=== PATIENT | male | born 1980 | race Caucasian/White ===

== ENCOUNTER 2020-10-17 21:46 | Emergency (ER) | payer BC ==
[2020-10-17] MEDS ORDERED: LORazepam 2 MG/ML SDV IVPUSH ONE ×3 (22:12→23:50)
--- NOTE | 2020-10-17 22:19 | EDM.PDOC ---
ED HPI GENERAL MEDICAL PROBLEM - General Chief Complaint: Neurological Problem Stated Complaint: TREMORES Time Seen by Provider: 10/17/20 22:05 Source of Information: Reports: Patient History Limitations: Reports: No Limitations - History of Present Illness INITIAL COMMENTS - FREE TEXT/NARRATIVE: This 40 yo male patient reports to the ED with a friend due to right sided tremors. 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 The patient reports he did have some stress this morning due to not being able to get in touch with his uncle. The patient reports he did take Ativan (0.5 mg) twice today with some symptom improvement. The patient does not believe he fell or hit his head today. The patient does not believe he has had any seizures. The patient reports his muscles hurt at this time from the shaking. Onset: Today (This afternoon) Duration: Constant, Getting Worse Location: Reports: Upper Extremity, Right, Lower Extremity, Right Quality: Reports: Other Severity: Moderate Improves with: Reports: Medication Worsens with: Reports: None Context: Reports: Other - Related Data Allergies Allergy/AdvReac Type Severity Reaction Status Date / Time naproxen [From Aleve] Allergy Cannot Verified 10/17/20 22:19 Remember Social & Family History - Tobacco Use Tobacco Use Status *Q: Never Tobacco User Second Hand Smoke Exposure: No - Recreational Drug Use Recreational Drug Use: No ED ROS GENERAL - Review of Systems Review Of Systems: Comprehensive ROS is negative, except as noted in HPI. ED EXAM, NEURO - Physical Exam Exam: See Below Exam Limited By: No Limitations General Appearance: Alert, WD/WN, Moderate Distress, Thin Eye Exam: Bilateral Eye: EOMI, Normal Inspection, PERRL Ears: Normal External Exam, Normal Canal, Hearing Grossly Normal, Normal TMs Nose: Normal Inspection, Normal Mucosa, No Blood Throat/Mouth: Normal Inspection, Normal Lips, Normal Teeth, Normal Gums, Normal Oropharynx, Normal Voice, No Airway Compromise Head Exam: Atraumatic, Normocephalic Neck: Normal Inspection, Supple, Non-Tender, Full Range of Motion Respiratory/Chest: No Respiratory Distress, Lungs Clear, Normal Breath Sounds, No Accessory Muscle Use, Chest Non-Tender Cardiovascular: Normal Peripheral Pulses, Regular Rate, Rhythm, No Edema, No Gallop, No JVD, No Murmur, No Rub GI/Abdominal: Normal Bowel Sounds, Soft, Non-Tender, No Organomegaly, No Distention, No Abnormal Bruit, No Mass (Male) Exam: Deferred Rectal (Males) Exam: Deferred Neurological: Alert, Normal Mood/Affect, Oriented x 3, Abnormal Gait (due to right sided tremors) Extremities: Other (The patient has tremors to his right upper and lower extre mities) Psychiatric: Normal Affect, Normal Mood Skin Exam: Warm, Dry, Intact, Normal Color, No Rash Course - Vital Signs Last Recorded V/S: Last Vital Signs Temp 98.1 F 10/17/20 21:47 Pulse 66 10/17/20 21:47 Resp 18 10/17/20 21:47 BP 108/78 10/17/20 21:47 Pulse Ox 100 10/17/20 21:47 - Orders/Labs/Meds Labs: Laboratory Tests 10/17/20 10/17/20 10/18/20 Range/Units 21:55 21:55 00:28 WBC 6.5 (5.0-10.0) 10^3/uL RBC 4.42 L (4.6-6.2) 10^6/uL Hgb 13.9 L (14.0-18.0) g/dL Hct 40.0 (40.0-54.0) % MCV 90.5 (80-100) fL MCH 31.4 (27.0-34.0) pg MCHC 34.8 (33.0-35.0) g/dL Plt Count 207 (150-450) 10^3/uL Neut % (Auto) 49.0 (42.2-75.2) % Lymph % (Auto) 39.8 (20.5-50.1) % [place] % (Auto) 9.1 H (2-8) % Eos % (Auto) 1.8 (1.0-3.0) % Baso % (Auto) 0.3 (0.0-1.0) % Sodium 145 (136-145) mmol/L Potassium 4.1 (3.5-5.1) mmol/L Chloride 105 (98-107) mmol/L Carbon Dioxide 28 (21-32) mmol/L Anion Gap 16.1 H (7-13) mEq/L BUN 13 (7-18) mg/dL Creatinine 1.37 H (0.70-1.30) mg/dL Est Cr Clr Drug Dosing 70.28 mL/min Estimated GFR (MDRD) 57 BUN/Creatinine Ratio 9.5 (No establ ref range) Glucose 93 (70-99) mg/dL Calcium 8.5 (8.5-10.1) mg/dL Total Bilirubin 0.7 (0.2-1.0) mg/dL AST 18 (15-37) U/L ALT 43 (16-63) U/L Alkaline Phosphatase 61 (46-116) U/L Total Protein 6.5 (6.4-8.2) g/dL Albumin 3.6 (3.4-5.0) g/dL Globulin 2.9 Albumin/Globulin Ratio 1.2 Urine Color Yellow (YELLOW) Urine Appearance Clear (CLEAR) Urine pH 7.0 (5.0-9.0) Ur Specific [place] 1.025 (1.005-1.030) Urine Protein Negative (NEGATIVE) Urine Glucose (UA) Negative (NEGATIVE) Urine Ketones Negative (NEGATIVE) Urine Occult Blood Negative (NEGATIVE) Urine Nitrite Negative (NEGATIVE) Urine Bilirubin Negative (NEGATIVE) Urine Urobilinogen 1.0 (0.2-1.0) mg/dL Ur Leukocyte Esterase Negative (NEGATIVE) Meds: Medications Discontinued Medications Generic Name Dose Route Start Last Admin Trade Name Freq PRN Reason Stop Dose Admin Diphenhydramine HCl 50 mg 10/18/20 00:24 10/18/20 02:25 Diphenhydramine 50 Mg/Ml Sdv IVPUSH 10/18/20 00:25 50 mg ONETIME ONE Administration Sodium Chloride 1,000 mls @ 999 mls/hr 10/17/20 22:36 10/17/20 22:45 Normal Saline IV 10/17/20 23:36 999 mls/hr .BOLUS ONE Administration Ketorolac Tromethamine 30 mg 10/18/20 02:14 10/18/20 02:27 Ketorolac 30 Mg/Ml Sdv IVPUSH 10/18/20 02:15 30 mg ONETIME ONE Administration Lorazepam 0.5 mg 10/17/20 22:12 10/17/20 22:23 Lorazepam 2 Mg/Ml Sdv IVPUSH 10/17/20 22:13 0.5 mg ONETIME ONE Administration Lorazepam 0.5 mg 10/17/20 22:36 10/17/20 22:45 Lorazepam 2 Mg/Ml Sdv IVPUSH 10/17/20 22:37 0.5 mg ONETIME ONE Administration Lorazepam 1 mg 10/17/20 23:50 10/17/20 23:57 Lorazepam 2 Mg/Ml Sdv IVPUSH 10/17/20 23:51 1 mg ONETIME ONE Administration - Re-Assessments/Exams Free Text/Narrative Re-Assessment/Exam: 10/17/20 23:53 The patient's tremors did go away, but once the patient woke up again his tremors returned. An order was placed for a dose of Ativan and a CT. 10/18/20 02:16 The patient woke up and started to have the right hand tremor again. The patient reports a headache as well as needing to urinate. Orders were placed for Benadryl and Toradol. 10/18/20 05:50 The patient has been sleeping without tremors over the past 4 hours. The patient reports he feels a little better at this time. Departure - Departure Time of Disposition: 05:51 Disposition: Home, Self-Care 01 Condition: Fair Clinical Impression: Tremors of nervous system - Discharge Information *PRESCRIPTION DRUG MONITORING PROGRAM REVIEWED*: Not Applicable *COPY OF PRESCRIPTION DRUG MONITORING REPORT IN PATIENT [place]: Not Applicable Forms: ED Department Discharge Care Plan Goals: The patient was advised of the examination, lab and CT results during the visit. The patient was given IV fluids, IV Ativan, IV Benadryl and IV Toradol during the visit. The patient had increased tremors with increased stimulation (going to CT) and increased activity. The patient was encouraged to rest and relax throughout the next 24 hours. The patient may take his medications as prescribed. If the patient has any additional symptoms or concerns, the patient should either return to the emergency department or visit his primary care facility. Sepsis Event Note (ED) - Focused Exam Vital Signs: Vital Signs Temp Pulse Resp BP Pulse Ox 10/17/20 21:47 98.1 F 66 18 108/78 100
[2020-10-17 22:31] LABS: ANION GAP 16.1 mEq/L (7-13)
[2020-10-17] MEDS ORDERED: Sodium Chloride 0.9% 1,000 ML IV ONE (22:36)
--- NOTE | 2020-10-18 00:20 | CT ---
PROCEDURE INFORMATION: Exam: CT Head Without Contrast Exam date and time: 10/18/2020 12:04 AM Age: 40 years old Clinical indication: Other: Tremors; Patient HX: HX tbi TECHNIQUE: Imaging protocol: Computed tomography of the head without contrast. Radiation optimization: All CT scans at this facility use at least one of these dose optimization techniques: automated exposure control; mA and/or kV adjustment per patient size (includes targeted exams where dose is matched to clinical indication); or iterative reconstruction. COMPARISON: No relevant prior studies available. FINDINGS: Limitations: Study is grossly limited by motion. Brain: No gross intracranial mass collection or hemorrhage. Cerebral ventricles: Ventricular system is midline. Paranasal sinuses: Grossly clear. Mastoid air cells: Mastoids: Grossly clear. Bones/joints: Poorly assessed Soft tissues: Poorly assessed IMPRESSION: 1. No gross intracranial abnormality. 2. Significant abnormalities could be obscured, an early repeat study is recommended
[2020-10-18] MEDS ORDERED: diphenhydrAMINE 50 MG/ML SDV IVPUSH ONE (00:24)
[2020-10-18] MEDS ORDERED: Ketorolac 30 MG/ML SDV IVPUSH ONE (02:14)
== END 2020-10-18 06:46 | disposition home or self-care (01) ==
LOC: DL.ED 21:46
DX: R25.1 Tremor, unspecified (principal); Z88.5 Allergy status to narcotic agent
CPT/HCPCS: 36415; 70450; 80053; 81003; 85025; 96374; 96375; 96376; 99283; 99284-25; J1200; J1885; J2060; J7030